=== PATIENT | female | born 1985 | race Caucasian/White ===

== ENCOUNTER → 2016-08-26 | Outpatient (CLI) | payer BC ==
[~2016-08-26] MED LIST: ACET-1311 PO; ALBUAER2 INH; PRENTAB26 PO; [UNRECOGNIZED DRUG - CODE] PO
== END | disposition home or self-care (01) ==
LOC: C.LAB1850 11:45
PROVIDERS: ATTEND Obstetrics & Gynecology
DX: N91.2 Amenorrhea, unspecified (principal)

== ENCOUNTER → 2016-10-07 | Outpatient (CLI) | payer BC | END | disposition home or self-care (01) | LOC: C.LAB1850 12:00 | PROVIDERS: ATTEND Obstetrics & Gynecology | DX: Z32.00 Encounter for pregnancy test, result unknown (principal) ==

== ENCOUNTER → 2016-10-09 | Outpatient (CLI) | payer BC | END | disposition home or self-care (01) | LOC: C.LAB1850 11:49 | PROVIDERS: ATTEND Obstetrics & Gynecology | DX: O20.0 Threatened abortion (principal); Z3A.00 Weeks of gestation of pregnancy not specified ==

== ENCOUNTER → 2016-10-16 | Outpatient (CLI) | payer BC | END | disposition home or self-care (01) | LOC: C.LAB1850 08:01 | PROVIDERS: ATTEND Obstetrics & Gynecology | DX: O20.0 Threatened abortion (principal) ==

== ENCOUNTER → 2017-03-04 | Outpatient (CLI) | payer BC ==
[2017-03-04 09:32] LABS: SEMEN VOLUME 2.5 ML
== END | disposition home or self-care (01) ==
LOC: C.LAB 08:58
PROVIDERS: ATTEND Obstetrics & Gynecology
DX: N97.9 Female infertility, unspecified (principal)

== ENCOUNTER → 2017-04-02 | Outpatient (CLI) | payer BC ==
[2017-04-02 10:56] LABS: SEMEN VOLUME 2.3 ML
== END | disposition home or self-care (01) ==
LOC: C.LAB 10:24
PROVIDERS: ATTEND Obstetrics & Gynecology
DX: N97.9 Female infertility, unspecified (principal)

== ENCOUNTER → 2017-10-17 | Outpatient (CLI) | payer BC ==
[2017-10-17 17:56] LABS: LUTEINIZING HORMONE 5.64 IU/L
[2017-10-17 17:57] LABS: FOLLICLE STIMULAT HORMONE 5.56 IU/L
== END | disposition home or self-care (01) ==
LOC: C.LAB1850 16:16
PROVIDERS: ATTEND Obstetrics & Gynecology
DX: E28.2 Polycystic ovarian syndrome (principal); R63.5 Abnormal weight gain; N93.9 Abnormal uterine and vaginal bleeding, unspecified

== ENCOUNTER → 2017-11-04 | Outpatient (CLI) | payer BC | END | disposition home or self-care (01) | LOC: C.PAPS 11:55 | PROVIDERS: ATTEND Obstetrics & Gynecology | DX: Z01.419 Encounter for gynecological examination (general) (routine) without abnormal findings (principal) ==

== ENCOUNTER → 2018-03-20 | Outpatient (CLI) | payer BC | END | disposition home or self-care (01) | LOC: C.LABBC 09:44 | PROVIDERS: ATTEND Nurse Practitioner Adult Health | DX: Z00.00 Encounter for general adult medical examination without abnormal findings (principal) ==

== ENCOUNTER 2019-10-13 12:03 | Inpatient (IN) ==
[2019-10-13] MEDS: LACTATED RINGER'S 1,000 ML IV PRN ×2 (12:20→13:45)
--- NOTE | 2019-10-13 12:20 | History & Physical Report ---
Date of Service October 13, 2019 Assessment & Plan (1) : Admit to L&D. EFM/toco. IV fluids. OK for epidural. History of Present Illness Chief Complaint: contractions Primary Care Provider: [place], 33yo @ 39 5/ presents from office after reporting contractions there and found to be 4cm dilated with bulging membranes. + movement. No gush of fluid but increased discharge. No vaginal bleeding. complicated by AMA, obesity, History of recurrent miscarriages, GDMA1. Allergies Allergy/AdvReac Type Severity Reaction Status Date / Time No Known Allergies Allergy Mild Verified 10/13/19 10:46 Home Medications Home Medications Medication Instructions Recorded Confirmed Type acetone (urine) test #50 ea 08/13/19 10/13/19 Rx blood sugar diagnostic #120 ea 08/13/19 10/13/19 Rx blood-glucose meter #1 ea 08/13/19 10/13/19 Rx lancets 33 gauge #100 ea 08/13/19 10/13/19 Rx lancing device with lancets #1 ea 08/13/19 10/13/19 Rx vit-iron fum-folic ac 1 tab PO DAILY 10/06/19 10/13/19 History [ Vitamin] Patient History Social History (Updated 04/05/19 @ 09:16 by Megan Mcnulty MD) Preferred Language: Bahraini marital status: Current Living Situation: Spouse and Family Current Living Situation Comment: 1 daughter at home current occupational status: employed current occupation: teacher for [employer] Feels Safe at Home: Yes Smoking Status: Never smoker Second Hand Exposure: No ; Hx Alcohol Use: No Hx Substance Use: No Review of Systems All systems reviewed & are unremarkable except as noted in HPI & below Physical Exam Physical Exam: FHT Cat 1 Sheldon Q 2-3 SVE 6/100/-2 bulging membranes Constitutional: WD/WN, vitals as above Respiratory: normal respiratory effort, lungs clear to auscultation no respiratory distress Cardiovascular: Rate/Rhythm: regular rate and regular rhythm Gastrointestinal (Abdomen): Inspection/Auscultation: abdomen normal to inspection Percussion/Palpation: abdomen soft; abdomen nontender Gravid. No s/s chorio or abruption. Skin: no rashes, warm and dry Psychiatric: A+Ox3, euthymic affect Results & Data Vital Signs (Past 12 Hours) Vital Signs Pulse BP 10/13/19 12:14 82 132/80 Coding Level of Care Code None Diagnoses Z34.90
[2019-10-13] MEDS ORDERED: OXYTOCIN 30 UNITS/500 ML BAG IV PRN ×3 (12:36→14:33)
[2019-10-13 13:01] LABS: Hematocrit (blood only) 36.2 % (37-47); Hemoglobin 12.3 g/dL (12.0-16.0); Mean Corpuscular Hemoglobin 31.2 pg (25-34); Mean Corpuscular Volume 91.9 fL (80-100); Mean Platelet Volume 10.4 fL (7.4-10.4); Platelet Count 191 K/uL (130-400); RDW Coefficient of Variation 13.3 % (11.5-14.5); RDW Standard Deviation 44.5 fL (36.4-46.3); Red Blood Count 3.94 M/uL (4.2-5.4)
[2019-10-13] MEDS ORDERED: ePHEDrine sulfate 50 MG/ML AMP ONE (13:09)
[2019-10-13] MEDS ORDERED: fentaNYL 2MCG/ML ROPIV 1.25MG/ML 100 ML BAG EPI ONE (13:09)
[2019-10-13] MEDS ORDERED: fentaNYL citrate 100 MCG/2 ML VIAL ONE (13:09)
[2019-10-13] MEDS ORDERED: BUPIVACAINE 0.25% 30 ML VIAL ONE (13:09)
--- NOTE | 2019-10-13 13:28 | Anesthesiology Consultation ---
Date of Service October 13, 2019 Assessment & Plan (1) Encounter for pre-operative examination: Chart Review Chart Review: Acceptable Risk for Labor Epidural History Height/Weight Height: 5 ft 6 in Weight: 117.027 kg Allergies Allergy/AdvReac Type Severity Reaction Status Date / Time No Known Allergies Allergy Mild Verified 10/13/19 10:46 Medications Home Medications Medication Instructions Recorded Confirmed Last Taken acetone (urine) test #50 ea 08/13/19 10/13/19 Unknown blood sugar diagnostic #120 ea 08/13/19 10/13/19 Unknown blood-glucose meter #1 ea 08/13/19 10/13/19 Unknown lancets 33 gauge #100 ea 08/13/19 10/13/19 Unknown lancing device with lancets #1 ea 08/13/19 10/13/19 Unknown vit-iron fum-folic ac 1 tab PO DAILY 10/06/19 10/13/19 10/06/19 [ Vitamin] Active Medications Generic Name Dose Route Start Last Admin Trade Name Freq PRN Reason Stop Dose Admin Lactated Ringer's 1,000 mls @ 125 mls/hr 10/13/19 12:36 10/13/19 12:20 Lr IV 10/15/19 12:35 999 mls/hr .Q8H PRN Administration L&D Protocol Protocol Past Medical History Medical History Abnormal thyroid stimulating hormone (TSH) level (Resolved) Abnormal uterine bleeding (AUB) Anxiety (Acute) Benign nevus of skin Chromosomal abnormality Female infertility Hirsutism (Acute) History of irregular menstrual cycles History of ovarian cyst History of varicella Nephrolithiasis (Acute) PCOS (polycystic ovarian syndrome) (Acute) Reactive airway disease (Acute) Sebaceous hyperplasia Past Family History Family History Father Myocardial infarction Type 2 diabetes mellitus Deep vein thrombosis Prostate cancer Diabetes Dyslipidemia Grandmother No problems noted. Aunt Ovarian cancer maternal Brother Acquired intellectual disability Mother Endometriosis Grandmother (Maternal) Breast cancer Denies family history of Colorectal cancer Past Surgical History Surgical History History of bilateral breast reduction surgery History of wisdom tooth extraction Hx of LASIK S/P dilatation and curettage Social History Smoking Status: Never smoker Hx Alcohol Use: No Hx Substance Use: No substance use type: does not use Physical Exam Vital Signs Last Vital Signs Pulse 79 10/13/19 13:22 BP 132/80 10/13/19 12:21 Pulse Ox 100 10/13/19 13:22 Testing Laboratory Results 10/13/19 12:52
--- NOTE | 2019-10-13 14:32 | Delivery Summary ---
Vaginal Delivery Summary Date of Service October 13, 2019 Vaginal Delivery Summary Vaginal Delivery Summary: Pre-delivery diagnoses: 33yo @ 39 5/7, spontaneous labor, AMA, obesity, History of recurrent miscarriages, GDMA1 Post-delivery diagnoses: same Procedure: spontaneous vaginal delivery, repair of 2nd degree perineal laceration Surgeon: Tamy Diaz DO Complications: none Findings: Viable female . Apgars: 8/9. Weight pending, please see [facility] records. Estimated blood loss: 300ml Description of delivery: The patient progressed to complete with spinal anesthesia. She then began to push. She spontaneously vaginally delivered a viable from the cephalic presentation. The head delivered in ERMELINDA position. The anterior shoulder delivered, followed by the posterior shoulder, followed by the body. Nuchal cord wrapped around body - delivered through. The baby was placed on mother's abdomen and a spontaneous cry was heard. Delayed cord clamping was employed, and the cord was doubly clamped and cut. Cord blood was collected for public donation. The placenta was delivered spontaneously intact with a 3-vessel cord. The uterus and vagina were swept of clots and debris. IV pitocin was given. The uterus became firm. The cervix, vagina, and perineum were inspected and a 2nd degree perineal lacerations was noted and repaired in standard fashion with 3-0 vicryl. Excellent hemostasis was observed. The mother and baby are recovering in stable and good condition in the room. Sponge, needle and instrument counts were correct x 2. Tamy Diaz DO [facility] Vaginal Delivery Charge Vaginal Delivery Codes: 80980 global code for the antepartum, delivery, and post-
[2019-10-13] MEDS ORDERED: HYDROCORTISONE ACETATE 25 MG SUPP PR PRN (14:33)
[2019-10-13] MEDS ORDERED: ACETAMINOPHEN 325 MG TAB PO PRN (14:33)
[2019-10-13] MEDS ORDERED: SUPERCREAM 0.870% 15 GM JAR EXT PRN (14:33)
[2019-10-13] MEDS ORDERED: OXYCODONE/ACETAMINOPHEN 5mg/325mg TAB PO PRN (14:33)
[2019-10-13] MEDS ORDERED: DIPHTHERIA/TETANUS/PERTUSSIS 0.5 ML SYR/VIAL IM ONE (14:33)
[2019-10-13] MEDS ORDERED: bisacodyL 10 MG SUPP PR PRN (14:33)
[2019-10-13] MEDS ORDERED: BENZOCAINE 20% AER SPR 82.5 GM CAN EXT PRN (14:33)
[2019-10-13] MEDS: OSELTAMIVIR PHOSPHATE 75 MG CAP PO SCH (16:31)
[2019-10-13] MEDS: DOCUSATE SODIUM 100 MG CAP PO SCH (20:04)
[2019-10-13] MEDS: IBUPROFEN 600 MG TAB PO PRN (20:04)
[2019-10-14] MEDS: IBUPROFEN 600 MG TAB PO PRN ×4 (01:35→20:32)
--- NOTE | 2019-10-14 06:34 | Obstetrical Progress Note ---
Date of Service <Jose Daniel Mendoza DO - Last Filed: 10/14/19 06:34> October 14, 2019 Assessment & Plan <Jose Daniel Mendoza DO - Last Filed: 10/14/19 06:34> (1) : -PPD#1 -Vitals reviewed, WNL (Tmax 37) - GBS -, Blood Type A+ - Clinically stable. - Feels well today. Eating well, voiding well, ambulating well. - Pain well controlled. - Routine post- care - Continue Tamiflu for Influenza Prophylaxis - After discharge will have [address] Joe Cruz #:: 1 Subjective <Jose Daniel Mendoza DO - Last Filed: 10/14/19 06:34> Ambulation: ambulating normally Voiding: no voiding problems Passing Gas:: Yes Diet Tolerance:: regular diet Lochia:: Moderate Feeding Type:: breast feeding Current Pain Level(1-10): 1 (improves with analgesics) Patient is a 33 PPD#1. Patient states that she is feeling well today and that her pain is well controlled. She has no other complaints at this time. Constitutional: no fever and no chills Respiratory: + cough (ongoing x9 weeks); no dyspnea and no wheezing Cardiovascular: no chest pain, no dyspnea, no palpitations, no edema and no calf pain Breast: no breast pain Gastrointestinal: no abdominal pain, no nausea and no vomiting Genitourinary (female): no dysuria and no difficulty urinating Neurologic: no headache(s) Physical Exam <DO Jamee Moreau Last Filed: 10/14/19 06:34> Constitutional WD/WN, vitals as above Respiratory normal respiratory effort, lungs clear to auscultation Cardiovascular Rate/Rhythm: regular rate and regular rhythm Heart Sounds: normal S1 and normal S2; no click, no gallop, no murmur and no cardiac rub Extremities: + edema (+1); no calf tenderness Gastrointestinal (Abdomen) Inspection/Auscultation: abdomen normal to inspection and normal bowel sounds Percussion/Palpation: abdomen soft; abdomen nontender Genitourinary OB Exam Abdomen: + fundal height Fundus: + firm and + relation to umbilicus (3cm below); not tender and not boggy Results & Data <Jose Daniel JohnnDO Mancuso Last Filed: 10/14/19 06:34> Vital Signs (Past 12 Hours) Vital Signs Temp Pulse Resp BP Pulse Ox 10/14/19 04:40 37 C 76 18 117/73 10/14/19 00:40 36.8 C 62 18 135/82 96 10/13/19 20:13 37 C 83 18 116/75 95 <Tamy Diaz DO - Last Filed: 10/14/19 07:21> Co-Signing Physician Notes Resident Physician Supervision Note: I interviewed and examined the patient. Discussed with Dr. Mendoza and agree with findings and plan as documented in the note. Any exceptions or clarifications are listed here: PPD#1 doing well. Would like to stay until tomorrow because her 6-yo daughter at home has the flu. Has a asphalt smoother coming today to deep clean the house, and daughter has been treated and has not been febrile for the past 24+ hours. Documented By: Tamy Diaz DO Resident Activity Tracking <Jose Daniel Mendoza DO - Last Filed: 10/14/19 06:34> Resident Involvement: Resident Care Provided Care Provided: OB Delivery
[2019-10-14 07:05] LABS: Hematocrit (blood only) 31.1 % (37-47); Hemoglobin 10.6 g/dL (12.0-16.0)
[2019-10-14] MEDS: DOCUSATE SODIUM 100 MG CAP PO SCH ×2 (09:11→21:21)
[2019-10-14] MEDS: PRENATAL VITAMIN 1 TAB PO SCH (09:11)
[2019-10-14] MEDS: OSELTAMIVIR PHOSPHATE 75 MG CAP PO SCH (09:11)
[2019-10-14] MEDS ORDERED: bisacodyL 5 MG TABEC PO SCH (20:00)
[2019-10-15] MEDS: IBUPROFEN 600 MG TAB PO PRN ×2 (00:39→08:47)
--- NOTE | 2019-10-15 06:24 | Obstetrical Progress Note ---
Date of Service <Jose Daniel Mendoza DO - Last Filed: 10/15/19 06:24> October 15, 2019 Assessment & Plan <Jose Daniel Mendoza DO - Last Filed: 10/15/19 06:24> (1) : -PPD#2 -Vitals reviewed, WNL (Tmax 36.9) - GBS -, Blood Type A+ - Clinically stable. - Feels well today. Eating well, voiding well, ambulating well. - Pain well controlled. - Routine post- care - After discharge will have [address] Joe Cruz #:: 2 Subjective <Jose Daniel Mendoza DO - Last Filed: 10/15/19 06:24> Ambulation: ambulating normally Voiding: no voiding problems Passing Gas:: Yes Diet Tolerance:: regular diet Lochia:: Moderate Feeding Type:: breast feeding Current Pain Level(1-10): 2 (improves with analgesics) Patient is a 33 PPD#2. Patient states that she is feeling well today and that her pain is well controlled. She has no other complaints at this time. Constitutional: no fever and no chills Respiratory: + cough (ongoing x9 weeks); no dyspnea and no wheezing Cardiovascular: no chest pain, no dyspnea, no palpitations, no edema and no calf pain Breast: no breast pain Gastrointestinal: no abdominal pain, no nausea and no vomiting Genitourinary (female): no dysuria and no difficulty urinating Neurologic: no headache(s) Physical Exam <DO Jamee Moreau Last Filed: 10/15/19 06:24> Constitutional WD/WN, vitals as above Respiratory normal respiratory effort, lungs clear to auscultation Cardiovascular Rate/Rhythm: regular rate and regular rhythm Heart Sounds: normal S1 and normal S2; no click, no gallop, no murmur and no cardiac rub Extremities: + edema (+1); no calf tenderness Gastrointestinal (Abdomen) Inspection/Auscultation: abdomen normal to inspection and normal bowel sounds Percussion/Palpation: abdomen soft; abdomen nontender Genitourinary OB Exam Abdomen: + fundal height Fundus: + firm and + relation to umbilicus (2cm below); not tender and not boggy Results & Data <DO Jamee Moreau Last Filed: 10/15/19 06:24> Vital Signs (Past 12 Hours) Vital Signs Temp Pulse Resp BP Pulse Ox 10/14/19 23:15 36.9 C 68 16 149/82 H 96 10/14/19 20:15 36.9 C 78 16 149/92 H 96 <Benji Haisrton MD, FACOG - Last Filed: 10/15/19 07:18> Co-Signing Physician Notes Resident Physician Supervision Note: I was present with Dr. Mendoza during the history and exam. I discussed the case with the resident and agree with the findings and plan as documented in the note. Any exceptions or clarifications are listed here: [None] Documented By: Benji Hairston MD, FACOG Resident Activity Tracking <Jose Daniel Mendoza DO - Last Filed: 10/15/19 06:24> Resident Involvement: Resident Care Provided Care Provided: OB Delivery
[2019-10-15] MEDS: PRENATAL VITAMIN 1 TAB PO SCH (08:46)
[2019-10-15] MEDS: OSELTAMIVIR PHOSPHATE 75 MG CAP PO SCH (08:46)
[2019-10-15] MEDS: DOCUSATE SODIUM 100 MG CAP PO SCH (08:46)
== END 2019-10-15 16:55 | disposition home or self-care (01) | DRG 807 ==
LOC: OPB 12:03 → 4S1 12:04 → 4N 16:10